=== PATIENT | male | born 2000 | race Caucasian/White ===

== ENCOUNTER → 2024-04-13 | Outpatient (CLI) | payer OTHER ==
[2024-04-15 07:26] LABS: HEP A AB, IgM Negative (Negative)
== END | disposition home or self-care (01) ==
LOC: LAB 17:49
PROVIDERS: ATTEND Nurse Practitioner Family
DX: Z11.3 Encounter for screening for infections with a predominantly sexual mode of transmission (principal)
CPT/HCPCS: 36415; 80074; 86592; 86695; 86696; 86703